=== PATIENT | female | born 1960 | race Two or more races ===

== ENCOUNTER 2024-11-03 09:00 | Day surgery (SDC) | payer MEDICARE, MEDICAID, SELFPAY ==
[2024-11-03] VITALS (10 sets, daily range): BP systolic 97–188; BP diastolic 61–98; PULSE 59–69; RESP 12–19; TEMP 36.1–36.7; O2SAT 94–100; BMI 24.1
[2024-11-03] MEDS: DiphenhydrAMINE INJ 50 MG/ML VIAL 25 MG IV (10:21)
[2024-11-03] MEDS: fentaNYL CIT INJ 50 mCg/ML AMP 2ML (ASD USE ONLY) IV (10:30)
[2024-11-03] MEDS: MIDAZOLAM INJ 1 MG/ML VIAL 2 ML (ASD USE ONLY) 2 MG IV (10:30)
--- NOTE | 2024-11-03 10:43 | SUR.PHASEII ---
1043: received pt from OR via [facility].received report from CUBA Giron. pt sleeping at this time. no s/s of pain or discomfort. no s/s of resp. distress or discomfort.
--- NOTE | 2024-11-03 11:20 | SUR.PHASEII ---
1120: ambulate to bathroom with assist without any difficulty.
--- NOTE | 2024-11-03 11:30 | SUR.PHASEII ---
1130: pt sitting down in the wheelchair waiting for transport. pt alert and oriented x3. denies any pain or discomfort.
--- NOTE | 2024-11-03 11:56 | SUR.PHASEII ---
1156: pt discharge to home via wheelchair accompanied by daughter. pt alert and oriented x3. denies any c/o pain or discomfort. no s/s of resp. distress or discomfort. discharge instructions given to patient and daughter, verbalizes understanding. all belongings brought given back to patient.
--- NOTE | 2024-11-03 11:56 | SUR.PHASEII ---
1156: pt tolerate water without any difficulty.
== END 2024-11-03 11:56 | disposition home or self-care (01) ==
PROVIDERS: PCP Registered Nurse Community Health; Referring Provider Surgery; Visit Provider Surgery
PROC: 0DBE8ZX Excision of Large Intestine, Via Natural or Artificial Opening Endoscopic, Diagnostic (ICD-10-PCS; CPT 45380; principal; 2024-11-03 08:30)
DX: K57.31 Diverticulosis of large intestine without perforation or abscess with bleeding (principal); Z80.0 Family history of malignant neoplasm of digestive organs; K64.8 Other hemorrhoids
CPT/HCPCS: 45378; J1200; J2250; J3010

== ENCOUNTER → 2025-02-14 | Outpatient (CLI) | payer MEDICARE, MEDICAID, SELFPAY ==
--- NOTE | 2025-02-14 14:00 | ECHO_ITS ---
Transthoracic Echo Report Ht (in): 61 Wt (lb): 148 Exam Location: Echo Lab Status: [facility] Physician: DANIELLE Odonnell^^^^ Indications: Procedure Performed: BP: / HR: MEASUREMENTS (Male / Female) Normal Values 2D ECHO LV Diastolic Diameter PLAX 4.9 cm 4.2 - 5.9 / 3.9 - 5.3 cm LV Systolic Diameter PLAX 3.3 cm IVS Diastolic Thickness 0.5 cm 0.6 - 1.0 / 0.6 - 0.9 cm LVPW Diastolic Thickness 0.7 cm 0.6 - 1.0 / 0.6 - 0.9 cm LV Relative Wall Thickness 0.3 LVOT Diameter 1.7 cm Aortic Root Diameter 2.9 cm LA Systolic Diameter LX 3.8 cm 3.0 - 4.0 / 2.7 - 3.8 cm LA Volume Index 38.1 cm?/m? 16 - 28 cm?/m? DOPPLER AV Peak Velocity 144.0 cm/s AV Peak Gradient 8.3 mmHg AV Mean Gradient 4.0 mmHg AV Velocity Time Integral 28.2 cm LVOT Peak Velocity 87.2 cm/s LVOT Peak Gradient 3.0 mmHg LVOT Velocity Time Integral 22.2 cm AV Area Cont Eq vti 1.8 cm? AV Area Cont Eq pk 1.4 cm? MV Area PHT 5.6 cm? MR Peak Velocity 462.0 cm/s MR Peak Gradient 85.4 mmHg Mitral E Point Velocity 73.9 cm/s Mitral A Point Velocity 87.0 cm/s Mitral E to A Ratio 0.8 LV E' Lateral Velocity 8.1 cm/s Mitral E to LV E' Lateral Ratio 9.1 LV E' Septal Velocity 6.2 cm/s Mitral E to LV E' Septal Ratio 11.9 TR Peak Velocity 288.3 cm/s TR Peak Gradient 33.3 mmHg RVOT Peak Velocity 58.4 cm/s FINDINGS Left Ventricle Normal left ventricular size, wall thickness, systolic function with no obvious regional wall motion abnormalities. There is grade I diastolic dysfunction of the left ventricle (impaired relaxation pattern). The left ventricular ejection fraction is normal, estimated at 60-65%. Right Ventricle The right ventricle is normal in size and systolic function. The estimated right ventricular systolic pressure, 34 mmHg. Left Atrium The left atrial cavity size is mildly increased. Right Atrium The right atrium is normal by two-dimensional imaging, color flow and Doppler imaging with no structural abnormalities, no thrombus formation present. Atrial Septum The interatrial septum appears normal with no evidence of a shunt. Aorta The aorta is normal by two-dimensional, color flow and Doppler interrogation. Mitral Valve [id number] mitral regurgitation. Mild mitral annular calcification. Aortic Valve The aortic valve is trileaflet and normal to two-dimensional, color flow and Doppler interrogation. Tricuspid Valve There is mild tricuspid valve regurgitation. Pulmonic Valve Trivial pulmonic valve regurgitation. Vessels The pulmonary artery appears normal. The inferior vena cava pulmonary and hepatic veins appear normal. Pericardium The pericardium is normal by two-dimensional imaging. There is no significant pericardial effusion. CONCLUSIONS Indication: CAD and previous ND Normal LV size and function with EF 60-65%. Diastolic Dysfunction I Normal RV size and function with estimated RVSP 34 mmHg. Miildly dilated LA. Mild- Moderate MR & Mild TR Pavel Cruz (Electronically Signed) Final Date: 14 February 2025 18:47
== END | disposition home or self-care (01) ==
LOC: SDIM 14:20
PROVIDERS: Referring Provider Family Medicine; Visit Provider Family Medicine
DX: I08.1 Rheumatic disorders of both mitral and tricuspid valves (principal); I50.30 Unspecified diastolic (congestive) heart failure
CPT/HCPCS: 93306